=== PATIENT | female | born 1990 | race Caucasian/White ===

== ENCOUNTER 2016-09-08 22:00 | Emergency (ER) | payer OTHER ==
[~2016-09-08] VITALS: Ht 154.9 cm; Wt 66.7 kg
[~2016-09-08 22:00] MED LIST: BENADRYL25 MG PO; MEDROL DOSEPAK4 MG PO
[2016-09-08 22:04] VITALS: BP 141/94
[2016-09-08] MEDS ORDERED: SEASONIQUE1 TAB PO (22:06)
[2016-09-08] MEDS ORDERED: AMOXICILLIN500 M2 PO (22:34)
== END 2016-09-08 22:39 | disposition home or self-care (01) ==
LOC: ED 22:00
DX: J03.90 Acute tonsillitis, unspecified (principal)

== ENCOUNTER 2022-02-27 19:41 | Emergency (ER) | payer SELFPAY ==
[~2022-02-27] VITALS: Ht 154.9 cm; Wt 79.4 kg
[~2022-02-27 19:41] MED LIST changes: +AMOXICILLIN500 M2 PO; +SEASONIQUE1 TAB PO
[2022-02-27 19:51] VITALS: BP 164/94
== END 2022-02-27 20:52 | disposition home or self-care (01) ==
LOC: ED 19:41
DX: R07.89 Other chest pain (principal); Z79.899 Other long term (current) drug therapy